=== PATIENT | female | born 1950 | race Caucasian/White ===

== ENCOUNTER → 2018-03-15 | Outpatient (CLI) | payer MEDICARE ==
[~2018-03-15] MED LIST: ACYC400T PO; BUSPIRONE PO; CELEXA; CHOL100040 PO; CITA40TA6 PO; DIPH25CA7 PO; FISH1CAP49 PO; FLUT16H NASAL; LOVA40TA2 PO; METF-446 PO; PEPTOBISMOL; SITA100T12 PO; VIT1CAPS5 PO
[2018-03-15 10:51] LABS: CREATININE 0.8 mg/dL (0.5-1.5)
== END | disposition home or self-care (01) ==
LOC: LAB 10:13
PROVIDERS: ATTEND Internal Medicine Gastroenterology
DX: R10.30 Lower abdominal pain, unspecified (principal)
CPT/HCPCS: 36415; 82565; 84520

== ENCOUNTER 2021-07-29 08:00 | Inpatient (IN) | payer MEDICARE ==
[~2021-07-29] VITALS: Ht 165.1 cm; Wt 115.3 kg
[~2021-07-29 08:00] MED LIST changes: -ACYC400T PO; +ACYC400T20 PO; -BUSPIRONE PO; -CELEXA; -CHOL100040 PO; -CITA40TA6 PO; -DIPH25CA7 PO; -FISH1CAP49 PO; -FLUT16H NASAL; -PEPTOBISMOL; -SITA100T12 PO; -VIT1CAPS5 PO
[2021-07-30 10:18] LABS: APPEARANCE,URINE Clear (CLEAR); BILIRUBIN,URINE Negative (NEGATIVE); COLOR,URINE Yellow (YELLOW); GLUCOSE, URINE (UA) Negative (NEGATIVE); KETONES,URINE Negative (NEGATIVE); LEUKOCYTE ESTERASE ,URINE Small (NEGATIVE); NITRATE,URINE Negative (NEGATIVE); OCCULT BLOOD,URINE Negative (NEGATIVE); PROTEIN,URINE Negative (NEGATIVE)
[2021-07-30 10:21] LABS: CREATININE 0.8 mg/dL (0.5-1.5); POTASSIUM 4.3 mmol/L (3.5-5.1)
[2021-07-30 11:21] LABS: BACTERIA,URINE Rare /HPF (None Seen); RBC,URINE None Seen /HPF (0-1); SQUAMOUS EPITHELIAL CELL,UR 0-2 /HPF (0-2); WBC,URINE 0-1 /HPF (0-1)
[2021-07-30 11:40] VITALS: BP 131/63
[2021-07-30] MEDS ORDERED: BUSP10TA3 PO (12:51)
[2021-07-30] MEDS ORDERED: ACET-2743 PO (12:51)
[2021-07-30] MEDS ORDERED: GABA-529 PO (12:51)
[2021-07-30] MEDS ORDERED: VIT1CAPS5 PO (12:51)
[2021-07-30] MEDS ORDERED: PREVAGEN PO (12:51)
[2021-07-30] MEDS ORDERED: FISH1CAP50 PO (12:51)
[2021-07-30] MEDS ORDERED: MELATONIN PO (12:51)
[2021-07-30] MEDS ORDERED: CITA40TA14 PO (12:51)
[2021-07-30] MEDS ORDERED: SEMA1PEN3 SQ (12:51)
[2021-07-30] MEDS ORDERED: CYAN100T45 PO (12:51)
[2021-07-30] MEDS ORDERED: VITAD50000 PO (12:51)
[2021-07-31] VITALS (24 sets, daily range): BP systolic 106–152; BP diastolic 53–85
[2021-07-31] MEDS ORDERED: CEFAZOLIN SODIUM 1 GM VIAL IVP ONE (08:00)
[2021-07-31] MEDS ORDERED: 0.9%NACL 1000ML 1,000 ML IV ONE (08:37)
[2021-07-31] MEDS ORDERED: ACETAMINOPHEN 500 MG TABLET ONE (09:32)
[2021-07-31] MEDS ORDERED: KETOROLAC 15MG/ML VIAL (15MG/ML) ONE (09:32)
[2021-07-31] MEDS ORDERED: CELECOXIB 200 MG CAP ONE (09:33)
[2021-07-31] MEDS ORDERED: TRANEXAMIC ACID 1000MG/10ML ONE ×2 (09:38→13:23)
[2021-07-31] MEDS ORDERED: LIDOCAINE PF 100MG/5ML (2%) SYRINGE 5ML ONE (10:20)
[2021-07-31] MEDS ORDERED: FENTANYL CITRATE PF 50 MCG/1 ML 2ML VIAL ONE ×2 (10:20→14:08)
[2021-07-31] MEDS ORDERED: ROPIVACAINE 0.5% 5MG/ML 30ML IJ ONE (10:25)
[2021-07-31] MEDS ORDERED: ONDANSETRON 4MG INJ ONE (11:23)
[2021-07-31] MEDS ORDERED: ROCURONIUM BROMIDE 10MG/1ML 5ML VL ONE (11:48)
[2021-07-31] MEDS: CEFAZOLIN SODIUM 1 GM VIAL ONE ×2 (11:54→11:55)
[2021-07-31] MEDS ORDERED: TRAMADOL HCL 50 MG TABLET PO PRN (13:30)
[2021-07-31] MEDS ORDERED: POTASSIUM CHLORIDE 20MEQ/100ML 100 ML IV PRN (13:30)
[2021-07-31] MEDS ORDERED: LIDOCAINE HCL-MPF 1% 2ML VIAL IV PRN (13:30)
[2021-07-31] MEDS ORDERED: FERROUS FUMARATE 324 MG TABLET PO PRN (13:30)
[2021-07-31] MEDS: ACETAMINOPHEN 500 MG TABLET PO SCH ×2 (13:30→20:49)
[2021-07-31] MEDS ORDERED: ONDANSETRON 4MG INJ IVP PRN (13:30)
[2021-07-31] MEDS ORDERED: KCL 20 MEQ ERTAB PO PRN (13:30)
[2021-07-31] MEDS ORDERED: DiphenhydrAMINE HCL 50 MG/ML VIAL IVP PRN (13:30)
[2021-07-31] MEDS ORDERED: TEMAZEPAM 15 MG CAPSULE PO PRN (13:30)
[2021-07-31] MEDS ORDERED: POTASSIUM CHLORIDE 10% ELIXIR 20 MEQ/15 ML UDCUP PO PRN (13:30)
[2021-07-31] MEDS: INSULIN HUMULIN R 100 UNIT/ML 3ML SQ SCH ×2 (16:30→20:29)
[2021-07-31] MEDS: CEFAZOLIN SODIUM 1 GM VIAL IVP SCH (18:27)
[2021-07-31] MEDS: 0.9%NACL 1000ML 1,000 ML IV SCH ×2 (18:28→20:49)
[2021-07-31] MEDS: CELECOXIB 200 MG CAP PO SCH (20:32)
[2021-07-31] MEDS: BUSPIRONE HCL 5 MG TABLET PO SCH (20:33)
[2021-07-31] MEDS: GABAPENTIN 100 MG CAPSULE PO SCH (20:48)
[2021-07-31] MEDS: FAMOTIDINE 20MG TAB PO SCH (20:48)
[2021-07-31] MEDS: OXYCODONE HCL 5 MG TAB PO PRN (20:48)
[2021-07-31] MEDS: ACYCLOVIR 200 MG CAPSULE PO SCH (20:49)
[2021-07-31] MEDS: METFORMIN HCL 500 MG TABLET PO SCH (20:49)
[2021-08-01] MEDS: KETOROLAC 15MG/ML VIAL (15MG/ML) IV PRN ×3 (00:02→14:42)
[2021-08-01 00:08] VITALS: BP 124/62
[2021-08-01] MEDS: CEFAZOLIN SODIUM 1 GM VIAL IVP SCH (02:08)
[2021-08-01 04:08] VITALS: BP 154/69
[2021-08-01 04:22] LABS: HEMATOCRIT 36.7 % (36-48); MEAN CORPUSCULAR HEMOGLOBIN 28.2 pg (27.0-33.0); MEAN CORPUSCULAR VOLUME 94.1 fL (79-99); PLATELET COUNT (AUTO) 221 K/uL (130-400); RED CELL DISTRIBUTION WIDTH 12.8 % (11.0-15.5); WHITE BLOOD COUNT (AUTO) 10.1 K/uL (4.8-10.8)
[2021-08-01 04:45] LABS: CREATININE 0.8 mg/dL (0.5-1.5); POTASSIUM 3.6 mmol/L (3.5-5.1)
[2021-08-01] MEDS: ACETAMINOPHEN 500 MG TABLET PO SCH ×3 (05:01→22:16)
[2021-08-01] MEDS: INSULIN HUMULIN R 100 UNIT/ML 3ML SQ SCH ×4 (05:47→20:56)
[2021-08-01 07:11] VITALS: BP 124/57
[2021-08-01] MEDS: FAMOTIDINE 20MG TAB PO SCH ×2 (07:59→19:39)
[2021-08-01] MEDS: CALCIUM CARB 500MG PO PRN ×2 (08:00→19:39)
[2021-08-01] MEDS: BUSPIRONE HCL 5 MG TABLET PO SCH ×2 (08:00→19:39)
[2021-08-01] MEDS: CELECOXIB 200 MG CAP PO SCH ×2 (08:01→19:40)
[2021-08-01] MEDS: CITALOPRAM 20 MG TABLET PO SCH (08:02)
[2021-08-01] MEDS: METFORMIN HCL 500 MG TABLET PO SCH ×2 (08:02→16:52)
[2021-08-01] MEDS: ACYCLOVIR 200 MG CAPSULE PO SCH ×2 (08:03→19:39)
[2021-08-01] MEDS: APIXABAN 2.5 MG TABLET PO SCH ×2 (08:03→19:39)
[2021-08-01] MEDS: POLYETHYLENE GLYCOL 3350 17 GM POWD.PACK PO SCH (08:05)
[2021-08-01] MEDS: ATORVASTATIN 10 MG TABLET PO SCH (08:19)
[2021-08-01] MEDS: OXYCODONE HCL 5 MG TAB PO PRN ×4 (08:59→22:15)
[2021-08-01] MEDS: 0.9%NACL 1000ML 1,000 ML IV SCH (09:30)
[2021-08-01 11:14] VITALS: BP 128/58
[2021-08-01 15:49] VITALS: BP 156/81
[2021-08-01] MEDS: GABAPENTIN 100 MG CAPSULE PO SCH (19:39)
[2021-08-01 20:08] VITALS: BP 176/70
[2021-08-02 00:16] VITALS: BP 147/65
[2021-08-02 04:20] VITALS: BP 154/70
[2021-08-02] MEDS: ACETAMINOPHEN 500 MG TABLET PO SCH ×3 (04:39→21:19)
[2021-08-02] MEDS: INSULIN HUMULIN R 100 UNIT/ML 3ML SQ SCH ×4 (06:02→20:03)
[2021-08-02 07:11] VITALS: BP 155/72
[2021-08-02] MEDS: METFORMIN HCL 500 MG TABLET PO SCH ×2 (08:14→16:47)
[2021-08-02] MEDS: CITALOPRAM 20 MG TABLET PO SCH (08:14)
[2021-08-02] MEDS: POLYETHYLENE GLYCOL 3350 17 GM POWD.PACK PO SCH (08:14)
[2021-08-02] MEDS: APIXABAN 2.5 MG TABLET PO SCH ×2 (08:16→19:33)
[2021-08-02] MEDS: ATORVASTATIN 10 MG TABLET PO SCH (08:16)
[2021-08-02] MEDS: OXYCODONE HCL 5 MG TAB PO PRN ×4 (08:16→21:14)
[2021-08-02] MEDS: CELECOXIB 200 MG CAP PO SCH ×2 (08:16→19:33)
[2021-08-02] MEDS: FAMOTIDINE 20MG TAB PO SCH ×2 (08:16→19:33)
[2021-08-02] MEDS: ACYCLOVIR 200 MG CAPSULE PO SCH ×2 (08:17→19:34)
[2021-08-02] MEDS: BUSPIRONE HCL 5 MG TABLET PO SCH ×2 (08:17→19:33)
[2021-08-02 11:19] VITALS: BP 164/69
[2021-08-02] MEDS: KETOROLAC 15MG/ML VIAL (15MG/ML) IV PRN ×2 (12:40→19:39)
[2021-08-02 16:08] VITALS: BP 165/74
[2021-08-02] MEDS: GABAPENTIN 100 MG CAPSULE PO SCH (19:33)
[2021-08-02 20:00] VITALS: BP 175/68
[2021-08-03] MEDS ORDERED: BISACODYL 10 MG SUPP.RECT RC PRN (13:30)
[2021-08-07] MEDS ORDERED: SEMAGLUTIDE 0.5 MG SQ SCH (09:00)
== END 2021-08-02 22:30 | DRG 470 ==
LOC: EDSTATUS 08:00 → OBSVTOIN 07-31 07:49 → DAHIP 07-31 07:49 → 4AH 07-31 14:50
PROVIDERS: ADMIT Orthopaedic Surgery; ATTEND Orthopaedic Surgery
PROC: 0SRD0J9 Replacement of Left Knee Joint with Synthetic Substitute, Cemented, Open Approach (ICD-10-PCS; principal; 2021-07-31 10:46)
DX: M17.12 Unilateral primary osteoarthritis, left knee (principal); D62 Acute posthemorrhagic anemia; E11.9 Type 2 diabetes mellitus without complications; E78.5 Hyperlipidemia, unspecified; Z80.3 Family history of malignant neoplasm of breast; Z82.3 Family history of stroke; Z82.49 Family history of ischemic heart disease and other diseases of the circulatory system; Z83.3 Family history of diabetes mellitus; Z87.11 Personal history of peptic ulcer disease; Z85.828 Personal history of other malignant neoplasm of skin; Z98.84 Bariatric surgery status; Z90.49 Acquired absence of other specified parts of digestive tract; Z88.8 Allergy status to other drugs, medicaments and biological substances
CPT/HCPCS: 36415; 80048; 81001; 82948; 85027; 87088; 87635; 87641; 93005; 97039; G0378; J0690; J1815; J1885; J2001; J2405; J2795; J3010; J3490; J7030; J7120

== ENCOUNTER 2023-11-24 20:31 | Emergency (ER) | payer MEDICARE ==
[~2023-11-24] VITALS: Ht 165.1 cm; Wt 104.3 kg
[~2023-11-24 20:31] MED LIST changes: +ACET-2743 PO; +BUSP10TA3 PO; +CITA40TA14 PO; +CYAN100T45 PO; +FISH1CAP50 PO; +GABA-529 PO; +MELATONIN PO; +PREVAGEN PO; +SEMA1PEN3 SQ; +VIT1CAPS5 PO; +VITAD50000 PO
[2023-11-24 20:47] LABS: BASOPHILS # (AUTO) 0.08 K/uL (0.00-0.20); BASOPHILS % (AUTO) 0.8 % (0.0-5.0); EOSINOPHILS # (AUTO) 0.75 K/uL (0.00-0.70); EOSINOPHILS % (AUTO) 7.1 % (0.0-8.0); IMMATURE GRANULOCYTE ABSOLUTE 0.04 K/uL (0-1); LYMPHOCYTES # (AUTO) 3.5 K/uL (1.0-4.8); LYMPHOCYTES % (AUTO) 33.3 % (21.0-51.0); MEAN CORPUSCULAR HEMOGLOBIN 29.3 pg (27.0-33.0); MEAN CORPUSCULAR HGB CONC 32.4 g/dL (32.0-36.0); MEAN CORPUSCULAR VOLUME 90.5 fL (79-99); MONOCYTES % (AUTO) 9.5 % (3.0-13.0); NEUTROPHILS # (AUTO) 5.2 K/uL (1.8-7.7); NEUTROPHILS % (AUTO) 48.9 % (40.0-77.0); PLATELET COUNT (AUTO) 267 K/uL (130-400); RED BLOOD CELL COUNT(AUTO) 4.64 MIL/uL (4.00-5.50); RED CELL DISTRIBUTION WIDTH 13.5 % (11.0-15.5); WHITE BLOOD COUNT (AUTO) 10.6 K/uL (4.8-10.8)
[2023-11-24 21:12] LABS: CREATININE 0.8 mg/dL (0.5-1.0); POTASSIUM 4.1 mmol/L (3.5-5.1)
[2023-11-24] MEDS: ONDANSETRON 4MG INJ IVP ONE (21:26)
[2023-11-24] MEDS: PANTOPRAZOLE 40 MG/VIAL IVP ONE (21:26)
[2023-11-24] MEDS: 0.9%NACL 1000ML 1,000 ML IV ONE (21:26)
[2023-11-24] MEDS ORDERED: DICY20TA2 PO (22:49)
[2023-11-24 23:04] VITALS: BP 128/55; PULSE 66; RESP 20; O2SAT 94
== END 2023-11-24 23:07 | disposition home or self-care (01) ==
LOC: EDH 20:31
DX: E78.00 Pure hypercholesterolemia, unspecified (principal); E11.9 Type 2 diabetes mellitus without complications; R11.2 Nausea with vomiting, unspecified; R10.9 Unspecified abdominal pain; Z79.624 Long term (current) use of inhibitors of nucleotide synthesis; Z79.84 Long term (current) use of oral hypoglycemic drugs; Z79.899 Other long term (current) drug therapy; Z88.5 Allergy status to narcotic agent
CPT/HCPCS: 99284; 96374; 96375; 80048; 83690; 85025; 36415; 74018; J7030; J2405; J2470